=== PATIENT | female | born 1940 | race Caucasian/White ===

== ENCOUNTER 2017-01-21 11:21 | Emergency (ER) | payer MEDICARE, OTHER ==
--- NOTE | 2017-01-21 14:36 | ED Physician Documentation ---
PD HPI LOWER EXT INJURY - Stated complaint Stated Complaint: LEG PX - Chief complaint Chief Complaint: Ext Problem - History obtained from History obtained from: Patient - History of Present Illness PD HPI LOW EXT INJURY LOCATION: Left, Calf Type of injury: No: Fall, Twist, Blunt / blow Timing - onset: How many weeks ago (1 week ago noted an abrupt pain in mid calf. Has had some pain with walking, and had increasing cramping pain today.) Timing - details: Gradual onset, Still present Worsened by: Moving, Palpating Associated symptoms: No: Weakness, Numbness, Swelling, Discolored Similar symptoms before: Has not had sx before Recently seen: Not recently seen Review of Systems Constitutional: denies: Fever, Chills Skin: denies: Rash, Lesions Musculoskeletal: denies: Extremity swelling Neurologic: denies: Focal weakness, Numbness PD PAST MEDICAL HISTORY - Past Medical History Cardiovascular: Hypertension Respiratory: Asthma Neuro: None Endocrine/Autoimmune: Type 2 diabetes Psych: None Musculoskeletal: Scoliosis, Other - 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 History 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 History: 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: Dilation and currettage, Hysterectomy - Present Medications Home Medications: Ambulatory Orders Medication Instructions Recorded Confirmed Doxazosin [Cardura] 4 mg PO DAILY 07/03/13 01/21/17 Lisinopril [Zestril] 20 mg PO DAILY 07/03/13 01/21/17 Metformin HCl [Glumetza] 1,000 mg PO DAILY 07/03/13 01/21/17 Dulaglutide [Trulicity] 0.75 mg SQ 01/21/17 - Social History Does the pt smoke?: No Smoking Status: Never smoker Does the pt drink ETOH?: No Does the pt have substance abuse?: No - Immunizations Immunizations are current?: Yes - POLST Patient has POLST: No PD ED PE NORMAL - Vitals Vital signs reviewed: Yes - General General: Alert and oriented X 3, No acute distress, Well developed/nourished - Neck Neck: Supple, no meningeal sign, No adenopathy, No JVD - Cardiac Cardiac: RRR, No murmur - Respiratory Respiratory: Clear bilaterally - Abdomen Abdomen: Soft, Non tender - Derm Derm: Normal color, Warm and dry - Extremities Extremities: No edema, Other. No: No tenderness to palpate, Normal ROM s pain - Neuro Neuro: Alert and oriented X 3, No motor deficit, No sensory deficit, Normal speech Results - Vitals Vitals: Oxygen O2 Source [With Activity] Room air O2 Source Room air - Rads (name of study) duplex U/S of left calf veins Radiology: Prelim report reviewed (no DVT) PD MEDICAL DECISION MAKING - ED course Complexity details: considered differential (concern for muscle strain or such vs. DVT. They are going on plane flight/trip this coming Saturday, so is concerned about blood clot. ), d/w patient Departure - Departure Disposition: Home, Self Care Clinical Impression: Pain of left calf Clinical Impression: (Ruled Out): Deep vein thrombosis Condition: Stable Record reviewed to determine appropriate education?: Yes Instructions: ED Muscle Pain Leg Cramps Follow-Up: Chadd Wilson MD [Primary Care Provider] - Comments: The ultrasound is negative for blood clots. Presume then muscular cause of the pain and use some warm towels to the area periodically and use ibuprofen or naproxen twice daily for the next for 5 days. Add Tylenol if needed for pain. Recheck if other symptoms develop with it or if worsening. For the calf only, the ultrasound is pretty accurate but not 100% and so if you do have worsening of the pain or swelling in the leg than the ultrasound can be repeated in about a week as there is perhaps 1-2% chance of missing a blood clot early in the calf by ultrasound. Discharge Date/Time: 01/21/17 16:09
[2017-01-21 16:09] VITALS: BP 178/81
--- NOTE | 2017-01-21 16:23 | Ultrasound Report ---
LEFT LEG VENOUS DUPLEX: 01/21/2017 CLINICAL INDICATION: Calf pain. TECHNIQUE: Real-time sonographic vascular imaging was performed by the commercial hvac technician through the left l ower extremity utilizing both color flow and Doppler spectral analysis. Multiple credit and collections representative stati c images were saved for review. FINDINGS: A left lower extremity venous sonogram is performed revealing the common femoral, superfici al femoral, profunda femoris, and popliteal veins to be adequately visualized without intraluminal de fects. There is normal venous compression, augmentation, phasicity, and spontaneity of venous flow. I n the calf, the visualized more cephalad portions of posterior tibial and peroneal veins are grossly compressible, without filling defects. IMPRESSION: NO EVIDENCE OF DEEP VENOUS THROMBOSIS. JOB #: [id number] EXT JOB #:[id number]
== END 2017-01-21 16:09 | disposition home or self-care (01) ==
LOC: ED 11:21
DX: M79.662 Pain in left lower leg (principal); I10 Essential (primary) hypertension; J45.909 Unspecified asthma, uncomplicated; E11.9 Type 2 diabetes mellitus without complications; Z79.84 Long term (current) use of oral hypoglycemic drugs
CPT/HCPCS: 99283

== ENCOUNTER 2018-02-17 12:42 | Outpatient (CLI) | payer MEDICARE, OTHER | END 2018-02-17 12:43 | disposition home or self-care (01) | LOC: DI 12:42 | PROVIDERS: ATTEND Internal Medicine | DX: R06.09 Other forms of dyspnea (principal); I51.7 Cardiomegaly | CPT/HCPCS: 93306 ==

== ENCOUNTER 2018-02-24 15:33 | Emergency (ER) | payer MEDICARE, OTHER ==
--- NOTE | 2018-02-24 16:45 | ED Physician Documentation ---
PD HPI LOWER EXT INJURY - Stated complaint Stated Complaint: BACK L KNEE PX - Chief complaint Chief Complaint: Ext Problem - History obtained from History obtained from: Patient - History of Present Illness PD HPI LOW EXT INJURY LOCATION: Left, Knee, Calf (upper part behind knee mainly) Type of injury: No: Fall, Twist (no notable injury. had onset of pain that has been worsening.) Where injury occurred: Home Timing - onset: Yesterday Timing - details: Gradual onset, Waxing and waning Improved by: Rest Worsened by: Palpating, Other (walking) Associated symptoms: No: Weakness, Numbness, Swelling Contributing factors: No: Anticoagulated Similar symptoms before: Has not had sx before Recently seen: Not recently seen Review of Systems Constitutional: denies: Fever, Chills Nose: denies: Rhinorrhea / runny nose, Congestion Throat: denies: Sore throat Cardiac: denies: Chest pain / pressure Respiratory: denies: Dyspnea, Cough GI: denies: Nausea, Vomiting, Diarrhea Skin: denies: Rash, Lesions PD PAST MEDICAL HISTORY - Past Medical History Cardiovascular: Hypertension Respiratory: Asthma Endocrine/Autoimmune: Type 2 diabetes Psych: None Musculoskeletal: Scoliosis, Other - 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 History 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 History: No /PLATE FORMER: Dilation and currettage, Hysterectomy - Present Medications Home Medications: Ambulatory Orders Medication Instructions Recorded Confirmed Doxazosin [Cardura] 4 mg PO DAILY 07/03/13 01/21/17 Lisinopril [Zestril] 20 mg PO DAILY 07/03/13 01/21/17 Metformin HCl [Glumetza] 1,000 mg PO DAILY 07/03/13 01/21/17 Dulaglutide [Trulicity] 0.75 mg SQ 01/21/17 Hydrocodone/Acetaminophen [[place] 1 each PO Q6H PRN #15 tablet 02/24/18 5-325 Tablet] Naproxen 375 mg PO BID #20 tablet 02/24/18 - Allergies Allergies/Adverse Reactions: Allergies Allergy/AdvReac Type Severity Reaction Status Date / Time cephalexin [From Keflex] Allergy Unknown Verified 02/24/18 16:21 - Social History Does the pt smoke?: No Smoking Status: Never smoker Does the pt drink ETOH?: No Does the pt have substance abuse?: No - Immunizations Immunizations are current?: Yes - POLST Patient has POLST: No PD ED PE NORMAL - Vitals Vital signs reviewed: Yes - General General: Alert and oriented X 3, Well developed/nourished, Other (uncomfortable with standing/walking. ) - Cardiac Cardiac: RRR, No murmur - Respiratory Respiratory: Clear bilaterally - Abdomen Abdomen: Soft, Non tender - Back Back: No spinal TTP - Derm Derm: Normal color, Warm and dry, No rash - Extremities Extremities: No edema, Other (there is tenderness in lateral popliteal area, without obvious mass. No rash nor sores. Simple ligament testing of knee without laxity nor ligament pains. ) - Neuro Neuro: No motor deficit, No sensory deficit Results - Vitals Vitals: Oxygen O2 Source [With Activity] Room air O2 Source Room air - Rads (name of study) knee xray Radiology: Prelim report reviewed (some arthritic changes; no acute process) duplex leg Radiology: Prelim report reviewed (no DVT. Bakers cyst seen. ) PD MEDICAL DECISION MAKING - ED course Complexity details: reviewed results (knee xray and duplex - has Bakers cyst so may be the pain. Otherwise would be suspicious for meniscal pain. ), considered differential (concern for DVT though not calf pain per se. Can get U/S. ), d/w patient, d/w family (spouse) Departure - Departure Disposition: 01 Home, Self Care Clinical Impression: Knee pain, acute Qualifiers: Laterality: left Qualified Code(s): M25.562 - Pain in left knee Lemus's cyst of knee Qualifiers: Laterality: left Qualified Code(s): M71.22 - Synovial cyst of popliteal space [Lemus], left knee Condition: Stable Record reviewed to determine appropriate education?: Yes Instructions: ED Cyst Lemus, ED Meniscal Injury Knee Poss Follow-Up: Cesario Browne MD [Primary Care Provider] - [facility] [Provider Group] Prescriptions: Hydrocodone/Acetaminophen [[place] 5-325 Tablet] 1 each PO Q6H PRN #15 tablet PRN Reason: Pain Naproxen 375 mg PO BID #20 tablet Comments: There are no signs of blood clots on ultrasound. Your x-ray appeared normal without any obvious arthritis or fractures. The ultrasound did show a Lemus's cyst in the back of the knee and this may be causing acute pain if it was newly expanded or having inflammation. Alternatively it may be an incidental finding and the pain is actually from the cartilage in the knee having some inflammation or bruising. Both of these would be initially treated with less weight on the knee, therefore using crutches for partial to no weightbearing. Also anti-inflammatories such as naproxen twice daily for the next 7-10 days. Add Tylenol or hydrocodone if needed for pain. Recheck if not improved over the next several days. If the cyst is the cause of the pain and does not improve, he can get drained initially or repaired by orthopedics. Alternatively they could assess if they think the meniscus is causing the pain as well. Discharge Date/Time: 02/24/18 20:28
[2018-02-24] MEDS ORDERED: HYDROcod/ACETAM 5/325 MG TABLET PO STA (17:20)
[2018-02-24] MEDS ORDERED: NAPROXEN 250 MG TABLET PO STA (17:20)
--- NOTE | 2018-02-24 18:11 | XRAY Report ---
Reason: left knee pain Procedure Date: 02/24/2018 Accession Number: [id number] / [id number] Procedure: XR - Knee 3 View LT CPT Code: FULL RESULT: EXAM: LEFT KNEE RADIOGRAPHY EXAM DATE: 02/24/2018 05:33 PM. CLINICAL HISTORY: Left knee pain for one day. No precipitating injury. COMPARISON: None. TECHNIQUE: 3 views. FINDINGS: Bones: Normal. No fractures or bone lesions. Joints: Normal. No effusion. No subluxations. Soft Tissues: Normal. No soft tissue swelling. IMPRESSION: Normal knee radiography. RADIA
--- NOTE | 2018-02-24 19:51 | Ultrasound Report ---
Reason: left popliteal pain for 2 days Procedure Date: 02/24/2018 Accession Number: [id number] / [id number] Procedure: US - Duplex Ext Veins Left CPT Code: FULL RESULT: EXAM: LEFT LOWER EXTREMITY VENOUS ULTRASOUND EXAM DATE: 02/24/2018 08:11 PM. CLINICAL HISTORY: Left popliteal pain for 2 days. COMPARISON: DUPLEX EXT VEINS LEFT 01/21/2017 3:15 PM. TECHNIQUE: Real-time sonographic vascular imaging was performed by the station jailer through the lower extremity utilizing both color-flow and Doppler spectral analysis. Multiple hostess party sales representative static images were saved for review. FINDINGS: Common Femoral Vein (CFV): Normal. CFV-GSV Junction: Normal. Profunda Femoral Vein (PFV): Normal. Femoral Vein (FV) Prox: Normal. Femoral Vein (FV) Mid: Normal. Femoral Vein (FV) Dist: Normal. Popliteal Vein: Normal. Posterior Tibial Veins: Limited visualization. Peroneal Veins: Limited visualization. Other: Left popliteal fluid collection 5.9 x 0.7 x 2.4 cm. IMPRESSION: 1. No evidence for deep venous thrombosis. 2. Left Lemus's cyst. RADIA
[2018-02-24] MEDS ORDERED: HYDROcod/ACET 5/325 Prepack 4 PO STA (20:12)
[2018-02-24 20:20] VITALS: BP 182/75
== END 2018-02-24 20:28 | disposition home or self-care (01) ==
LOC: ED 15:33
DX: M71.22 Synovial cyst of popliteal space [Baker], left knee (principal); I10 Essential (primary) hypertension; E11.9 Type 2 diabetes mellitus without complications; Z79.84 Long term (current) use of oral hypoglycemic drugs
CPT/HCPCS: 73562; 93971; 99283; A9270

== ENCOUNTER 2018-03-12 08:49 | Outpatient (CLI) | payer MEDICARE, OTHER ==
[2018-03-12] MEDS ORDERED: REGADENOSON 0.4 MG/5 ML SYRINGE IVP ONE ×2 (10:22→12:14)
--- NOTE | 2018-03-12 12:32 | CARDIAC PROCEDURE NOTE ---
DATE OF SERVICE: 03/12/2018 Physician: Lina Frank MD, [facility] INDICATION: Dyspnea. CORONARY RISK FACTORS: Postmenopausal, hypertension, diabetes, family history of heart disease. SUMMARY: After signing informed consent, the patient underwent a Lexiscan pharmaceutical stress test with nuclear myocardial perfusion imaging. Heart rate 76, peak heart rate 92. Resting blood pressure 160/76, peak blood pressure 130/60, recovery blood pressure 148/60. Lexiscan was infused per protocol. The patient developed abdominal "pressure" which resolved spontaneously, and after that she had bilateral upper arm pressure which also resolved spontaneously. She had no chest pain or dyspnea. RESTING EKG: Normal sinus rhythm, right axis deviation, early RS transition, T- wave inversions in leads III and aVF. EKG AT [facility]: No new ST or T-wave changes. SUMMARY: 1. Abnormal resting EKG suggesting right heart disease or cor pulmonale. 2. No ischemic changes by EKG criteria, with pharmaceutical stress testing 3. Nuclear images reported separately. cc: Cesario Browne MD TD: 03/12/2018 12:20 [facility]
--- NOTE | 2018-03-12 14:23 | Nuclear Medicine Report ---
Reason: EXERTIONAL DYSPNEA Procedure Date: 03/12/2018 Accession Number: [id number] / [id number] Procedure: NM - Myocardial Perfusion STR/RST CPT Code: FULL RESULT: EXAM: SINGLE-ISOTOPE PHARMACOLOGICAL STRESS TEST WITH REGADENOSON. SINGLE-ISOTOPE AND ONE-DAY REST/STRESS MYOCARDIAL PERFUSION SCANS WITH TOMOGRAPHIC IMAGING, QUANTITATIVE ANALYSIS, WALL MOTION ANALYSIS AND CALCULATION OF EJECTION FRACTION. EXAM DATE: 03/12/2018 01:04 PM. CLINICAL HISTORY: EXERTIONAL DYSPNEA. COMPARISON: None. TECHNIQUE: After the intravenous administration of 10.7 mCi of Tc-99m sestamibi, a rest myocardial perfusion scan was done with tomography. Motion correction was applied when appropriate. After an appropriate delay, pharmacological stress was performed with the infusion of 0.4 mg regadenoson per protocol. According to protocol, 44.3 mCi of Tc-99m sestamibi was injected for stress myocardial perfusion scan. Motion correction was applied when appropriate. Gated tomographic images were obtained for wall motion analysis and computation of left ventricular ejection fraction. FINDINGS: There is a moderate severity partially fixed and partially reversible defect in the mid to distal anteroseptal wall. There is a smaller and less severe reversible defect in the mid inferolateral wall. Computer analysis: Summed stress score 7 Summed rest score 1 Summed difference score 6 Wall motion analysis demonstrates no focal wall motion abnormality. The left ventricular end-diastolic volume is 52 cc. The left ventricular end-systolic volume is 7 cc. The left ventricular ejection fraction is calculated to be 87%. IMPRESSION: 1. Moderate severity partially fixed and partially reversible mid to distal anterolateral septal wall defect. Small, mild severity reversible defect in the mid inferolateral wall. 2. Left ventricular ejection fraction of >65%. 3. Normal segmental and global wall motion. 4. Normal left ventricular cavity size, no change with stress. 5. Based on computer analysis, mildly abnormal study with moderate ischemia. RADIA
== END 2018-03-12 08:50 | disposition home or self-care (01) ==
LOC: DI 08:49
PROVIDERS: ATTEND Internal Medicine
DX: I25.9 Chronic ischemic heart disease, unspecified (principal); I10 Essential (primary) hypertension; R94.31 Abnormal electrocardiogram [ECG] [EKG]; E11.9 Type 2 diabetes mellitus without complications; Z82.49 Family history of ischemic heart disease and other diseases of the circulatory system
CPT/HCPCS: 78452; 93017; A9500; J2785

== ENCOUNTER 2018-03-20 22:39 | Outpatient (CLI) | payer MEDICARE, OTHER ==
--- NOTE | 2018-03-21 00:23 | Ultrasound Report ---
Reason: LEG PAIN, LEFT AND SWELLING Procedure Date: 03/20/2018 Accession Number: [id number] / [id number] Procedure: US - Duplex Ext Veins Left CPT Code: FULL RESULT: EXAM: LEFT LOWER EXTREMITY VENOUS ULTRASOUND EXAM DATE: 03/20/2018 11:48 PM. CLINICAL HISTORY: LEG PAIN, LEFT AND SWELLING. COMPARISON: DUPLEX EXT VEINS LEFT 02/24/2018 8:11 PM. TECHNIQUE: Real-time sonographic vascular imaging was performed by the nuclear auxiliary operator through the lower extremity utilizing both color-flow and Doppler spectral analysis. Multiple senior customer service representative static images were saved for review. FINDINGS: Common Femoral Vein (CFV): Normal. CFV-GSV Junction: Normal. Profunda Femoral Vein (PFV): Normal. Femoral Vein (FV) Prox: Normal. Femoral Vein (FV) Mid: Normal. Femoral Vein (FV) Dist: Normal. Popliteal Vein: Normal. Posterior Tibial Veins: Normal. Peroneal Veins: Normal. Contralateral Side CFV: Normal. Other: Popliteal fossa cyst with some internal echoes, measuring 5.7 x 0.9 x 3.0 cm. IMPRESSION: 1. No evidence for deep venous thrombosis. 2. Mildly complex popliteal fossa cyst. RADIA
== END 2018-03-20 22:40 | disposition home or self-care (01) ==
LOC: DI 22:39
PROVIDERS: ATTEND Orthopaedic Surgery Sports Medicine
DX: M79.605 Pain in left leg (principal); M71.22 Synovial cyst of popliteal space [Baker], left knee

== ENCOUNTER 2018-10-09 16:04 | Outpatient (CLI) | payer MEDICARE, OTHER ==
--- NOTE | 2018-10-11 09:48 | Ultrasound Report ---
Reason: PAINFUL,SWOLLEN Procedure Date: 10/09/2018 Accession Number: [id number] / [id number] Procedure: US - Head or Neck Soft Tissue CPT Code: FULL RESULT: EXAM: THYROID ULTRASOUND EXAM DATE: 10/09/2018 04:30 PM. CLINICAL HISTORY: Pain and swelling in right submandibular region. COMPARISON: None. TECHNIQUE: Real time sonographic imaging of the thyroid was performed by the car whacker. Multiple corporate representative static images were saved for review. FINDINGS: THYROID GLAND: Right Lobe: 3.6 x 2.0 x 1.4 cm, volume 4.7 cc. Normal background echotexture. Right Lobe Nodules: 1. Small cystic focus lateral mid gland 4 x 5 x 2 mm. 2. Cystic focus lateral lower pole 5 x 5 x 6 mm. 3. Complex solid and cystic focus lateral lower pole 4 x 4 x 6 mm. 4. Complex solid and cystic focus lower pole 4 x 4 x 4 mm. Left Lobe: 3.4 x 1.8 x 1.5 cm, volume 4.4 cc. Normal background echotexture. Left Lobe Nodules: 1. Solid and cystic focus upper pole 4 x 6 x 8 mm. 2. Predominantly cystic mixed lesion mid gland 5 x 6 x 7 mm. 3. Predominantly cystic mixed lesion mid to lower pole 7 x 7 x 7 mm. Isthmus: 0.1 cm AP. Isthmic Nodules: None. LYMPH NODES: No adenopathy demonstrated in the central or lateral compartment. OTHER: The region of patient's concern is in the right submandibular gland region. No abnormalities identified. IMPRESSION: 1. Multiple solid and/or cystic small thyroid lesions bilaterally measuring up to 6 mm on the right and 7 mm on the left. None meet WILLIAM criteria for recommended biopsy. Sonographic follow-up could be considered however and 12-24 months. 2. No mass or adenopathy in region of patient's concern near the submandibular gland. Management recommendations are based on 2015 [place] [employer] Management Guidelines for Adult Patients with Thyroid Nodules and Differentiated Thyroid Cancer. RADIA
== END 2018-10-09 16:05 | disposition home or self-care (01) ==
LOC: DI 16:04
PROVIDERS: ATTEND Physician Assistant
DX: E04.2 Nontoxic multinodular goiter (principal)
CPT/HCPCS: 76536

== ENCOUNTER 2018-11-04 14:20 | Emergency (ER) | payer MEDICARE, OTHER ==
[2018-11-04] MEDS ORDERED: DOXEPIN 10 MG CAPSULE PO STA (15:11)
[2018-11-04] MEDS ORDERED: predniSONE 20 MG TABLET PO STA (15:14)
[2018-11-04 15:37] VITALS: BP 142/68
--- NOTE | 2018-11-04 15:41 | ED Physician Documentation ---
History of Present Illness - Stated complaint Stated Complaint: RASH/WEAKNESS - Chief complaint Chief Complaint: General - History obtained from History obtained from: Patient, Family - History of Present Illness Timing: How many days ago (5) Pain level max: 0 Pain level now: 0 - Additonal information Additional information: 78-year-old female presents to the emergency department stating that she had 2 days of a flulike illness followed by a rash that started on the arms and is now worked its way under her trunk, back and legs. It is not on the palms or soles. There is also not on her face. It is very itchy. She has been taking Zantac without relief. She states that her doctor told her not to use hydrocortisone or Benadryl. Review of Systems Constitutional: denies: Fever, Chills Respiratory: denies: Cough GI: denies: Nausea, Vomiting, Diarrhea Skin: reports: Rash Musculoskeletal: denies: Neck pain, Back pain Neurologic: denies: Headache PD PAST MEDICAL HISTORY - Past Medical History Past Medical History: Yes Cardiovascular: Hypertension Respiratory: Asthma Neuro: None Endocrine/Autoimmune: Type 2 diabetes GI: None DATA MANAGEMENT: None : None HEENT: None Psych: None Musculoskeletal: Scoliosis, Other Derm: None - 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 History 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 History: No /DATA MANAGEMENT: Dilation and currettage, Hysterectomy - Present Medications Home Medications: Ambulatory Orders Medication Instructions Recorded Confirmed Doxazosin [Cardura] 4 mg PO DAILY 07/03/13 01/21/17 Lisinopril [Zestril] 20 mg PO DAILY 07/03/13 01/21/17 Metformin HCl [Glumetza] 1,000 mg PO DAILY 07/03/13 01/21/17 Dulaglutide [Trulicity] 0.75 mg SQ 01/21/17 Hydrocodone/Acetaminophen [[place] 1 each PO Q6H PRN #15 tablet 02/24/18 5-325 Tablet] Naproxen 375 mg PO BID #20 tablet 02/24/18 Doxepin HCl 10 mg PO TID PRN #20 capsule 11/04/18 predniSONE [Prednisone] 20 mg PO DAILY #7 tablet 11/04/18 - Allergies Allergies/Adverse Reactions: Allergies Allergy/AdvReac Type Severity Reaction Status Date / Time cephalexin [From Keflex] Allergy Unknown Verified 02/24/18 16:21 - Social History Does the pt smoke?: No Smoking Status: Never smoker Does the pt drink ETOH?: No Does the pt have substance abuse?: No - Immunizations Immunizations are current?: Yes - POLST Patient has POLST: No PD ED PE NORMAL - Vitals Vital signs reviewed: Yes - General General: Alert and oriented X 3, No acute distress - HEENT HEENT: PERRL, Moist mucous membranes, Pharynx benign, Dentition benign, Other (normal intraoral exam) - Neck Neck: Supple, no meningeal sign - Cardiac Cardiac: RRR, Strong equal pulses - Respiratory Respiratory: No respiratory distress, Clear bilaterally - Abdomen Abdomen: Soft, Non tender, Non distended - Derm Derm: Warm and dry, Other (Diffuse maculopapular exanthem. Light pink. Blanches easily.) - Neuro Neuro: Alert and oriented X 3 Results - Vitals Vitals: Vital Signs - 24 hr 11/04/18 11/04/18 14:29 15:36 Temperature 36.7 C 36.7 C Heart Rate 76 80 Respiratory 14 18 Rate Blood Pressure 134/66 H 142/68 H O2 Saturation 100 96 Oxygen O2 Source [With Activity] Room air O2 Source Room air PD MEDICAL DECISION MAKING - ED course Complexity details: considered differential, d/w patient ED course: 78-year-old female with a nonspecific dermatitis. No new lotions, detergents, travel, medications. Will utilize doxepin for itching. Will place on a low- dose steroid as well to see if this resolves her symptoms. Possible viral exanthem? Patient counseled regarding signs and symptoms for which I believe and urgent re-evaluation would be necessary. Patient with good understanding of and agreement to plan and is comfortable going home at this time This document was made in part using voice recognition software. While efforts are made to proofread this document, sound alike and grammatical errors may occur. Departure - Departure Disposition: 01 Home, Self Care Clinical Impression: Viral exanthem Condition: Good Instructions: ED Dermatitis Non Specific Rash Follow-Up: Cesario Browne MD [Primary Care Provider] - Within 1 week Prescriptions: Doxepin HCl 10 mg PO TID PRN #20 capsule PRN Reason: itching predniSONE [Prednisone] 20 mg PO DAILY #7 tablet Comments: Use the medications as prescribed. Return if you worsen. Follow-up with your doctor for further care. Your laboratory testing from your doctor is not available as of yet.
== END 2018-11-04 15:50 | disposition home or self-care (01) ==
LOC: ED 14:20
DX: B09 Unspecified viral infection characterized by skin and mucous membrane lesions (principal); I10 Essential (primary) hypertension; E11.9 Type 2 diabetes mellitus without complications; Z79.84 Long term (current) use of oral hypoglycemic drugs
CPT/HCPCS: 99282; 99284; A9270; J7512

== ENCOUNTER 2019-08-03 16:56 | Emergency (ER) | payer MEDICARE, OTHER ==
--- NOTE | 2019-08-03 17:15 | ED Physician Documentation ---
PD HPI FEMALE - Stated complaint Stated Complaint: FEMALE - Chief complaint Chief Complaint: UTI - History obtained from History obtained from: Patient (She is had a few days of burning dysuria and frequency without flank pain or fevers. 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: Dilation and currettage, Hysterectomy - Present Medications Home Medications: Ambulatory Orders Medication Instructions Recorded Confirmed Doxazosin [Cardura] 4 mg PO DAILY 07/03/13 01/21/17 Metformin HCl [Glumetza] 1,000 mg PO DAILY 07/03/13 01/21/17 lisinopriL [Zestril] 20 mg PO DAILY 07/03/13 01/21/17 Dulaglutide [Trulicity] 0.75 mg SQ 01/21/17 Hydrocodone/Acetaminophen [[place] 1 each PO Q6H PRN #15 tablet 02/24/18 5-325 Tablet] Naproxen 375 mg PO BID #20 tablet 02/24/18 Doxepin HCl 10 mg PO TID PRN #20 capsule 11/04/18 predniSONE [Prednisone] 20 mg PO DAILY #7 tablet 11/04/18 Ciprofloxacin [Cipro] 250 mg PO Q12H #6 tablet 08/03/19 Phenazopyridine HCl [Pyridium] 200 mg PO TID PRN #6 tablet 08/03/19 - Allergies Allergies/Adverse Reactions: Allergies Allergy/AdvReac Type Severity Reaction Status Date / Time cephalexin [From Keflex] Allergy Unknown Verified 08/03/19 17:02 - Social History Does the pt smoke?: No Smoking Status: Never smoker Does the pt drink ETOH?: No Does the pt have substance abuse?: No - Immunizations Immunizations are current?: Yes - POLST Patient has POLST: No PD ED PE NORMAL - Vitals Vital signs reviewed: Yes - General General: Alert and oriented X 3, No acute distress - Abdomen Abdomen: Soft, Non tender - Back Back: No CVA TTP - Neuro Neuro: Alert and oriented X 3, Normal speech Results - Vitals Vitals: Vital Signs - 24 hr 08/03/19 17:02 Temperature 36.5 C Heart Rate 90 Respiratory 16 Rate Blood Pressure 122/66 O2 Saturation 97 Oxygen O2 Source [With Activity] Room air O2 Source Room air - Labs Labs: Laboratory Tests 08/03/19 17:10 Urine Color YELLOW Urine Clarity HAZY Urine pH 5.5 Ur Specific [place] >=1.030 H Urine Protein 100 H Urine Glucose (UA) NEGATIVE Urine Ketones TRACE Urine Occult Blood LARGE H Urine Nitrite POSITIVE H Urine Bilirubin NEGATIVE Urine Urobilinogen 0.2 (NORMAL) Ur Leukocyte Esterase MODERATE H Urine RBC TNTC H Urine WBC >25 H Ur Squamous Epith Cells RARE Squamous Urine Crystals 6-10 Calcium Oxalate Urine Bacteria Many H Ur Microscopic Review INDICATED Urine Culture Comments INDICATED Departure - Departure Disposition: 01 Home, Self Care Clinical Impression: Cystitis Condition: Good Record reviewed to determine appropriate education?: Yes Instructions: ED UTI Cystitis Female Prescriptions: Ciprofloxacin [Cipro] 250 mg PO Q12H #6 tablet Phenazopyridine HCl [Pyridium] 200 mg PO TID PRN #6 tablet PRN Reason: dysuria Comments: We will culture your urine, the results should be done in 48-72 hours. If an antibiotic change is necessary we will call you. Return if worse in the meantime, especially if you develop increasing flank pain, fevers, or cannot keep down the medication.
[2019-08-03 17:25] LABS: BILIRUBIN,URINE NEGATIVE (NEGATIVE); GLUCOSE, URINE (UA) NEGATIVE (NEGATIVE); KETONES,URINE (UA) TRACE mg/dL (NEGATIVE); LEUKOCYTE ESTERASE, URINE MODERATE (NEGATIVE); NITRITE,URINE POSITIVE (NEGATIVE); OCCULT BLOOD,URINE LARGE (NEGATIVE); PH,URINE 5.5 PH (5.0-7.5); PROTEIN,URINE 100 mg/dL (NEGATIVE); UROBILINOGEN,URINE 0.2 (NORMAL) E.U./dL (NORMAL)
[2019-08-03 17:29] LABS: CLARITY,URINE HAZY (CLEAR)
[2019-08-03 17:33] LABS: BACTERIA,URINE Many /HPF (None Seen); CRYSTALS,URINE 6-10 Calcium Oxalate /LPF; RBC,URINE TNTC /HPF (0-5); SQUAMOUS EPITHELIAL CELL,UR RARE Squamous (<= Few)
[2019-08-03] MEDS ORDERED: PHENAZOPYRIDINE 100 MG TABLET PO STA (17:33)
[2019-08-03] MEDS ORDERED: CIPROFLOXACIN 250 MG TABLET PO STA (17:33)
[2019-08-03 17:49] VITALS: BP 134/58
== END 2019-08-03 17:51 | disposition home or self-care (01) ==
LOC: ED 16:56
DX: N30.90 Cystitis, unspecified without hematuria (principal); I10 Essential (primary) hypertension; E11.9 Type 2 diabetes mellitus without complications
CPT/HCPCS: 81001; 87077; 87086; 87181; 99283; A9270; 81003

== ENCOUNTER 2019-08-31 20:48 | Outpatient (CLI) | payer MEDICARE, OTHER | END 2019-08-31 20:49 | disposition home or self-care (01) | LOC: COV 20:48 | PROVIDERS: ATTEND Family Medicine | DX: R50.9 Fever, unspecified (principal); M79.10 Myalgia, unspecified site | CPT/HCPCS: 81599 ==

== ENCOUNTER 2019-09-26 15:39 | Emergency (ER) | payer MEDICARE, OTHER ==
[2019-09-26] MEDS ORDERED: predniSONE 20 MG TABLET PO STA (15:55)
--- NOTE | 2019-09-26 15:55 | ED Physician Documentation ---
History of Present Illness - Stated complaint Stated Complaint: MEDICINE REACTION - Chief complaint Chief Complaint: Allergic Rx - History obtained from History obtained from: Patient - History of Present Illness Timing: Other (This is a very pleasant 79-year-old woman who has prolapsed bladder, pending surgery but delayed due to coronavirus, because of it she is developing frequent UTIs. She developed typical symptoms of burning and dysuria about 3 days ago and was seen at a clinic and prescribed Bactrim, shortly thereafter developed painful burning lesions especially in the axillae. She also feels achy. She denies any oral lesions. 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 History: 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 and currettage, Hysterectomy - Present Medications Home Medications: Ambulatory Orders Medication Instructions Recorded Confirmed Doxazosin [Cardura] 4 mg PO DAILY 07/03/13 01/21/17 Metformin HCl [Glumetza] 1,000 mg PO DAILY 07/03/13 01/21/17 lisinopriL [Zestril] 20 mg PO DAILY 07/03/13 01/21/17 Dulaglutide [Trulicity] 0.75 mg SQ 01/21/17 Hydrocodone/Acetaminophen [[place] 1 each PO Q6H PRN #15 tablet 02/24/18 5-325 Tablet] Naproxen 375 mg PO BID #20 tablet 02/24/18 Doxepin HCl 10 mg PO TID PRN #20 capsule 11/04/18 predniSONE [Prednisone] 20 mg PO DAILY #7 tablet 11/04/18 Ciprofloxacin [Cipro] 250 mg PO Q12H #6 tablet 08/03/19 Phenazopyridine HCl [Pyridium] 200 mg PO TID PRN #6 tablet 08/03/19 predniSONE [Deltasone] 60 mg PO DAILY 5 Days #15 tablet 09/26/19 - Allergies Allergies/Adverse Reactions: Allergies Allergy/AdvReac Type Severity Reaction Status Date / Time cephalexin [From Keflex] Allergy Unknown Verified 09/26/19 15:47 - Social History Does the pt smoke?: No Smoking Status: Never smoker Does the pt drink ETOH?: No Does the pt have substance abuse?: No - Immunizations Immunizations are current?: Yes - POLST Patient has POLST: No PD ED PE NORMAL - Vitals Vital signs reviewed: Yes - General General: Alert and oriented X 3, No acute distress (Large macular erythematous areas in the axillae) - Extremities Extremities: Other (Large erythematous macular areas in the axillae, Mild desquamation) - Neuro Neuro: Alert and oriented X 3, Normal speech Results - Vitals Vitals: Vital Signs - 24 hr 09/26/19 15:43 Temperature 37.2 C Heart Rate 79 Respiratory 18 Rate Blood Pressure 184/71 H O2 Saturation 95 Oxygen O2 Source [With Activity] Room air O2 Source Room air - Labs Labs: Laboratory Tests 09/26/19 17:36 Urine Color ORANGE Urine Clarity CLEAR Urine pH 5.5 Ur Specific [place] 1.015 Urine Protein Urine Glucose (UA) Urine Ketones TRACE Urine Occult Blood NEGATIVE Urine Nitrite Urine Bilirubin NEGATIVE Urine Urobilinogen Ur Leukocyte Esterase Urine RBC None Seen Urine WBC 0-3 Ur Squamous Epith Cells FEW Squamous Urine Bacteria None Seen Ur Microscopic Review INDICATED Urine Culture Comments NOT INDICATED PD MEDICAL DECISION MAKING - ED course ED course: She has macular patches in her axillae probably from the sulfa. Her urine is now normal. No other evidence of SJS or TEN. Departure - Departure Disposition: 01 Home, Self Care Clinical Impression: Medication side effect Condition: Good Record reviewed to determine appropriate education?: Yes Instructions: ED Drug React Allergic Prescriptions: predniSONE [Deltasone] 60 mg PO DAILY 5 Days #15 tablet Comments: You were seen today due to a rash, I suspect it was from the sulfa drug. I would no longer take sulfa drugs in the future. Your urine though was now normal, so I think you can safely stop all antibiotics. We will put you on a few days of the steroids for the reaction. Return for new or worsening symptoms.
[2019-09-26 17:41] LABS: BILIRUBIN,URINE NEGATIVE (NEGATIVE); KETONES,URINE (UA) TRACE mg/dL (NEGATIVE); OCCULT BLOOD,URINE NEGATIVE (NEGATIVE); PH,URINE 5.5 PH (5.0-7.5)
[2019-09-26 17:51] LABS: CLARITY,URINE CLEAR (CLEAR)
[2019-09-26 17:54] LABS: BACTERIA,URINE None Seen /HPF (None Seen); RBC,URINE None Seen /HPF (0-5); SQUAMOUS EPITHELIAL CELL,UR FEW Squamous (<= Few)
[2019-09-26 18:19] VITALS: BP 197/102
== END 2019-09-26 18:19 | disposition home or self-care (01) ==
LOC: ED 15:39
DX: L27.1 Localized skin eruption due to drugs and medicaments taken internally (principal); T36.8X5A Adverse effect of other systemic antibiotics, initial encounter; N81.10 Cystocele, unspecified; N39.0 Urinary tract infection, site not specified; I10 Essential (primary) hypertension; E11.9 Type 2 diabetes mellitus without complications; Z79.84 Long term (current) use of oral hypoglycemic drugs
CPT/HCPCS: 81001; 99283; J7512; 81003; 87086

== ENCOUNTER 2019-10-03 07:09 | Outpatient (CLI) | payer MEDICARE, OTHER | END 2019-10-03 07:10 | disposition critical access hospital (66) | LOC: EMS 07:09 | PROVIDERS: ATTEND Surgery | DX: R07.9 Chest pain, unspecified (principal); R61 Generalized hyperhidrosis; R06.00 Dyspnea, unspecified | CPT/HCPCS: A0425; A0427 ==

== ENCOUNTER 2019-10-03 07:19 | Emergency (ER) | payer MEDICARE, OTHER ==
--- NOTE | 2019-10-03 07:26 | ED Physician Documentation ---
PD HPI CHEST PAIN - Stated complaint Stated Complaint: CP - History obtained from History obtained from: Patient - History of Present Illness Timing - onset: Today - Additional information Additional information: 79-year-old woman with history of diabetes and hypertension. Note made that she had a mildly abnormal stress test about 2 years ago, there was no specific follow-up but she does see a fuel technician. This morning at 4 AM she was walking to the bathroom and developed severe substernal chest pain radiating to the left and between the shoulder blades. She is short of breath and sweaty with it. Prior to arrival she received 4 baby aspirin and 1 nitroglycerin which dropped her pressure. She is noted to be in mildly rapid A. fib which is a new phenomenon for her. 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 and currettage, Hysterectomy - Present Medications Home Medications: Ambulatory Orders Medication Instructions Recorded Confirmed Doxazosin [Cardura] 4 mg PO DAILY 07/03/13 10/03/19 Metformin HCl [Glumetza] 1,000 mg PO BID 07/03/13 10/03/19 lisinopriL [Zestril] 20 mg PO DAILY 07/03/13 10/03/19 Dulaglutide [Trulicity] 0.75 mg SQ ONCE 01/21/17 10/03/19 Hydrocodone/Acetaminophen [[place] 1 each PO Q6H PRN #15 tablet 02/24/18 10/03/19 5-325 Tablet] Naproxen 375 mg PO BID #20 tablet 02/24/18 10/03/19 Doxepin HCl 10 mg PO TID PRN #20 capsule 11/04/18 10/03/19 predniSONE [Prednisone] 20 mg PO DAILY #7 tablet 11/04/18 predniSONE [Deltasone] 60 mg PO DAILY 5 Days #15 tablet 09/26/19 - Allergies Allergies/Adverse Reactions: Allergies Allergy/AdvReac Type Severity Reaction Status Date / Time acetaminophen [From Percocet] Allergy Unknown Verified 10/03/19 07:39 cephalexin [From Keflex] Allergy Unknown Verified 10/03/19 07:48 nitrofurantoin Allergy Unknown Verified 10/03/19 07:39 oxycodone [From Percocet] Allergy Unknown Verified 10/03/19 07:39 sulfamethoxazole Allergy Unknown Verified 10/03/19 07:39 [From Bactrim] trimethoprim [From Bactrim] Allergy Unknown Verified 10/03/19 07:39 - Social History Does the pt smoke?: No Smoking Status: Never smoker Does the pt drink ETOH?: No Does the pt have substance abuse?: No - Immunizations Immunizations are current?: Yes - POLST Patient has POLST: No PD ED PE NORMAL - Vitals Vital signs reviewed: Yes - General General: Other (She appears uncomfortable and is diaphoretic) - HEENT HEENT: PERRL, EOMI - Neck Neck: Supple, no meningeal sign, No bony TTP - Cardiac Cardiac: No murmur, Other (Irregularly irregular) - Respiratory Respiratory: No respiratory distress, Clear bilaterally - Abdomen Abdomen: Non tender - Derm Derm: Other (Sweaty; Improving rash from recent antibiotics in the right axilla) - Extremities Extremities: No edema, No calf tenderness / cord - Neuro Neuro: Alert and oriented X 3, Normal speech Results - Vitals Vitals: Vital Signs - 24 hr 10/03/19 10/03/19 10/03/19 07:20 07:36 08:05 Temperature 36.9 C Heart Rate 18 L 131 H 142 H Respiratory 17 26 H 21 Rate Blood Pressure 91/64 108/73 101/57 L O2 Saturation 97 97 96 Oxygen O2 Source [] Room air O2 Source Room air - EKG (time done) 0725 Rate: Rate (enter#) (135), Other (Twelve-lead EKG done at 07 25 demonstrates rapid atrial fibrillation with a rate of about 130, she has LVH, she has ST elevation in aVR, and widespread ST depression especially in the lateral leads. This is concerning for left main occlusion) - Labs Labs: Laboratory Tests 10/03/19 10/03/19 10/03/19 07:30 07:30 07:30 WBC 9.7 RBC 3.72 L Hgb 11.7 L Hct 35.5 L MCV 95.4 MCH 31.5 H MCHC 33.0 RDW 14.6 Plt Count 320 MPV 10.3 Neut # (Auto) 6.4 Lymph # (Auto) 2.6 [place] # (Auto) 0.5 Eos # (Auto) 0.2 Baso # (Auto) 0.0 Absolute Nucleated RBC 0.00 Nucleated RBC % 0.0 PT 12.5 INR 1.1 Sodium 136 Potassium 3.6 Chloride 99 L Carbon Dioxide 23 Anion Gap 14.0 H BUN 16 Creatinine 0.6 Estimated GFR (MDRD) 97 Glucose 213 H Calcium 9.0 Total Bilirubin 1.7 H AST 14 ALT 38 Alkaline Phosphatase 37 L Troponin I High Sens Total Protein 5.7 L Albumin 4.0 Globulin 1.7 L Albumin/Globulin Ratio 2.4 H Lipase 62 H 10/03/19 07:30 WBC RBC Hgb Hct MCV MCH MCHC RDW Plt Count MPV Neut # (Auto) Lymph # (Auto) [place] # (Auto) Eos # (Auto) Baso # (Auto) Absolute Nucleated RBC Nucleated RBC % PT INR Sodium Potassium Chloride Carbon Dioxide Anion Gap BUN Creatinine Estimated GFR (MDRD) Glucose Calcium Total Bilirubin AST ALT Alkaline Phosphatase Troponin I High Sens 18.1 H* Total Protein Albumin Globulin Albumin/Globulin Ratio Lipase PD MEDICAL DECISION MAKING - ED course ED course: 79-year-old woman with multiple risk factors "looks" like she is having an NM. EKG is concerning, shows new rapid atrial fibrillation with ST elevation in aVR and ST depression laterally. This is concerning for left main coronary occlusion. Will treat as STEMI. Received nitroglycerin prior to arrival with a drop in the pressure, will hold further nitrates. Pressure 91/61 here so a little limited on rate interventions for her A. fib. Received aspirin prior to arrival. Heparin drip begun. Accepted by Dr. Kash Aguirre to [facility] ED and cobras were completed. Initial plan was to send by [facility], there was a delay to transport because my understanding is that [place] and we had to switch transport methodologies to [facility]. Departure - Departure Disposition: 02 Transfer Acute Care Hosp Clinical Impression: STEMI (ST elevation myocardial infarction) Condition: Critical Discharge Date/Time: 10/03/19 08:15
[2019-10-03] MEDS ORDERED: HEPARIN 5,000 UNIT/ML VIAL IVP STA (07:28)
[2019-10-03] MEDS ORDERED: HEPARIN 25000UNITS/500ML (D5W) 25,000 UNIT/500 ML BAG IV STA (07:28)
[2019-10-03 07:41] LABS: BASOPHILS % (AUTO) 0.3 %; EOSINOPHILS # (AUTO) 0.2 10^3/uL (0.0-0.7); EOSINOPHILS % (AUTO) 1.8 %; HGB - HEMOGLOBIN 11.7 g/dL (12.0-16.0); LYMPHOCYTES # (AUTO) 2.6 10^3/uL (1.5-3.5); LYMPHOCYTES % (AUTO) 26.4 %; MEAN CORPUSCULAR HEMOGLOBIN 31.5 pg (27.0-31.0); MEAN CORPUSCULAR VOLUME 95.4 fL (81.0-99.0); MEAN PLATELET VOLUME 10.3 fL (7.9-10.8); MONOCYTES # (AUTO) 0.5 10^3/uL (0.0-1.0); MONOCYTES % (AUTO) 4.6 %; NEUTROPHILS # (AUTO) 6.4 10^3/uL (1.5-6.6); NEUTROPHILS % (AUTO) 65.8 %; PLT - PLATELET COUNT 320 10^3/uL (130-450); RED BLOOD COUNT 3.72 10^6/uL (4.20-5.40); RED CELL DISTRIBUTION WIDTH 14.6 % (12.0-15.0); WHITE BLOOD COUNT 9.7 x10^3/uL (4.8-10.8)
[2019-10-03] MEDS ORDERED: ONDANSETRON 4 MG/2 ML VIAL IVP STA (07:44)
[2019-10-03 07:48] LABS: INR 1.1 (0.8-1.2); PT - PROTHROMBIN TIME 12.5 secs (9.9-12.6)
[2019-10-03 07:57] LABS: ALBUMIN/GLOBULIN RATIO 2.4 (1.0-2.2); BILIRUBIN,TOTAL 1.7 mg/dL (0.2-1.0); CREATININE 0.6 mg/dL (0.4-1.0); TOTAL PROTEIN 5.7 g/dL (6.7-8.2)
[2019-10-03 08:13] VITALS: BP 101/57
--- NOTE | 2019-10-03 08:45 | XRAY Report ---
PROCEDURE: Chest 1 View X-Ray INDICATIONS: CP TECHNIQUE: One view of the chest was acquired. COMPARISON: 08/08/2014 FINDINGS: Surgical changes and devices: None. Lungs and pleura: No pleural effusions or pneumothorax. Lungs are clear. Mediastinum: Mediastinal contours appear normal. Heart size is normal. Bones and chest wall: No suspicious bony lesions. Overlying soft tissues appear unremarkable. IMPRESSION: No acute cardiopulmonary pathology. Reviewed by: Byron Richards MD on 10/03/2019 8:44 AM PDT Approved by: Byron Richards MD on 10/03/2019 8:44 AM PDT Station ID: [id number]
== END 2019-10-03 08:15 | disposition short-term general hospital (02) ==
LOC: EDUNIT# → ED 07:19
DX: I21.3 ST elevation (STEMI) myocardial infarction of unspecified site (principal); I48.91 Unspecified atrial fibrillation; L27.1 Localized skin eruption due to drugs and medicaments taken internally; T36.8X5A Adverse effect of other systemic antibiotics, initial encounter; I10 Essential (primary) hypertension; E11.9 Type 2 diabetes mellitus without complications; Z79.84 Long term (current) use of oral hypoglycemic drugs
CPT/HCPCS: 36415; 71045; 80053; 83690; 84484; 85025; 85610; 93005; 96374; 96375; 99281

== ENCOUNTER 2019-11-13 12:38 | Outpatient (CLI) | payer MEDICARE, OTHER | END 2019-11-13 12:39 | disposition home or self-care (01) | LOC: COV 12:38 | PROVIDERS: ATTEND Physician Assistant | DX: Z01.812 Encounter for preprocedural laboratory examination (principal); Z11.59 Encounter for screening for other viral diseases ==

== ENCOUNTER 2020-11-24 13:43 | Emergency (ER) | payer MEDICARE, OTHER ==
[2020-11-24] MEDS ORDERED: HYDROcod/ACETAM 5/325 MG TABLET PO STA (15:16)
--- NOTE | 2020-11-24 15:18 | ED Physician Documentation ---
PD HPI LOWER EXT INJURY - Stated complaint Stated Complaint: R KNEE PX - Chief complaint Chief Complaint: Ext Problem - History obtained from History obtained from: Patient, Family - Additional information Additional information: This is a malina 80-year-old woman with A. fib on Eliquis who had some mild posterior knee pain last night but suddenly developed more significant right knee pain while walking just prior to arrival. There was no specific injury. No changes in her activities recently. Pain is at this point severe. She cannot really walk or bear weight. 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, Hysterectomy - Present Medications Home Medications: Ambulatory Orders Medication Instructions Recorded Confirmed Metformin HCl [Glumetza] 1,000 mg PO BID 07/03/13 10/03/19 lisinopriL [Zestril] 40 mg PO DAILY 07/03/13 10/03/19 Naproxen 375 mg PO BID #20 tablet 02/24/18 10/03/19 Amlodipine Besylate [Norvasc] 10 mg PO DAILY 08/26/20 08/26/20 Aspirin [Aspirin EC] 81 mg PO DAILY 08/26/20 08/26/20 C,E,Zinc,Copper 11/Fwmzw1d/Lut 1 each PO DAILY 08/26/20 08/26/20 [Ocuvite Adult 50 Plus Softgel] Carvedilol [Coreg] 12.5 mg PO DAILY 08/26/20 08/26/20 Cholecalciferol (Vitamin D3) 25 mcg PO DAILY 08/26/20 08/26/20 [Vitamin D3] Famotidine [Acid-Pep] 20 mg PO DAILY 08/26/20 08/26/20 Lisinopril [Zestril] 40 mg PO DAILY 08/26/20 08/26/20 Rosuvastatin Calcium [Crestor] 10 mg PO QPM 08/26/20 08/26/20 Vitamin B Complex 1 each PO DAILY 08/26/20 08/26/20 glipiZIDE [Glipizide] 2.5 mg PO DAILY 08/26/20 08/26/20 HYDROcod/ACETAM 5/325 [[place] 5/325] 1 - 2 tab PO Q6H PRN #15 tablet 11/24/20 - Allergies Allergies/Adverse Reactions: Allergies Allergy/AdvReac Type Severity Reaction Status Date / Time acetaminophen [From Percocet] Allergy Unknown Verified 11/24/20 14:01 cephalexin [From Keflex] Allergy Unknown Verified 11/24/20 14:01 nitrofurantoin Allergy Unknown Verified 11/24/20 14:01 oxycodone [From Percocet] Allergy Unknown Verified 11/24/20 14:01 sulfamethoxazole Allergy Unknown Verified 11/24/20 14:01 [From Bactrim] trimethoprim [From Bactrim] Allergy Unknown Verified 11/24/20 14:01 - Social History Does the pt smoke?: No Smoking Status: Never smoker Does the pt drink ETOH?: No Does the pt have substance abuse?: No - Immunizations Immunizations are current?: Yes - POLST Patient has POLST: No PD ED PE NORMAL - Vitals Vital signs reviewed: Yes - General General: Alert and oriented X 3, No acute distress - Extremities Extremities: Other (R knee: Mild diffuse TTp about the joing with moderate effusion. Pain with flexion >30 degrees. No warmth/redness.) - Neuro Neuro: Alert and oriented X 3, Normal speech Results - Vitals Vitals: Vital Signs - 24 hr 11/24/20 11/24/20 13:56 16:13 Temperature 36.7 C 36.5 C Heart Rate 72 69 Respiratory 14 16 Rate Blood Pressure 136/56 H 134/55 H O2 Saturation 98 98 Oxygen O2 Source [With Activity] Room air O2 Source Room air PD MEDICAL DECISION MAKING - ED course ED course: I suspect she has a very small hemorrhagic effusion given that she is on Eliquis. The symptoms really are not consistent with infection, neither is the exam. We discussed a therapeutic arthrocentesis but given the finding of only small effusion on x-ray probably not worthwhile. Departure - Departure Disposition: 01 Home, Self Care Clinical Impression: Knee pain, acute Qualifiers: Laterality: right Qualified Code(s): M25.561 - Pain in right knee Condition: Good Record reviewed to determine appropriate education?: Yes Instructions: ED Knee Pain [facility] Follow-Up: Balta Rivas MD [Provider Admit Priv/Credential] - Prescriptions: HYDROcod/ACETAM 5/325 [[place] 5/325] 1 - 2 tab PO Q6H PRN #15 tablet PRN Reason: Pain Comments: X-ray today shows only a very small amount of fluid in the joints and mild arthritic changes. I would recommend you follow-up with the orthopedic surgeon, calling for an appointment. Returning if worse. I am prescribing a short course of narcotic pain medication for you. These are potentially dangerous and addictive medications that should be used carefully. These medications may constipate you. Take an quuk-yfu-bkyiotk stool softener (docusate) twice daily with plenty of water while taking these medications. If you go 24 hours without a bowel movement, take ppyb-hji-fcuenzp miralax, per package instructions. Do not drink or drive while taking these medications. If you received narcotic or sedating medications while in the emergency department, do not drive for 24 hours. Store this medication in a safe, secure place and out of reach of children. It is a violation of federal law to give or sell this medication to another person or to use in a manner other than prescribed. The ED will not refill narcotic prescriptions, including prescriptions lost or stolen. To dispose of unwanted medications: 1. [facility] at [address] in [place] has a medication drop box. They accept prescription medications (in pill form) Saturday through Saturday 9:00 a.m. to 5:00 p.m. 2. The [facility] [employer] accepts prescription medications (in pill form only) for disposal year round. Call for more information. 3. Contact the [facility] for the next [facility] sponsored prescription drug collection event. , [phone], or [phone]; Note that many narcotic pain relievers also contain Tylenol/acetaminophen. Please ensure that your total dose of acetaminophen from all sources does not exceed 3 g (3000 mg) per day. Discharge Date/Time: 11/24/20 17:10
--- NOTE | 2020-11-24 15:56 | XRAY Report ---
PROCEDURE: Knee 3 View RT INDICATIONS: knee pain TECHNIQUE: 3 views of the right knee(s) were acquired. COMPARISON: None. FINDINGS: Bones: No fractures or dislocations. No suspicious bony lesions. Moderate medial and patellofemora l compartment narrowing. Small paratracheal or osteophytes are present. No erosions. Soft tissues: Mild joint effusion. No suspicious soft tissue calcifications. IMPRESSION: 1. Arthritic changes with medial patellofemoral compartment as above. Reviewed by: Radha Hudson MD on 11/24/2020 3:55 PM PDT Approved by: Radha Hudson MD on 11/24/2020 3:55 PM PDT Station ID: [id number]
[2020-11-24 16:13] VITALS: BP 134/55
== END 2020-11-24 17:10 | disposition home or self-care (01) ==
LOC: ED 13:43
DX: M25.561 Pain in right knee (principal); M17.11 Unilateral primary osteoarthritis, right knee; I48.91 Unspecified atrial fibrillation; I10 Essential (primary) hypertension; E11.9 Type 2 diabetes mellitus without complications; M41.9 Scoliosis, unspecified; Z79.84 Long term (current) use of oral hypoglycemic drugs; Z79.01 Long term (current) use of anticoagulants; Z79.82 Long term (current) use of aspirin; Z79.899 Other long term (current) drug therapy
CPT/HCPCS: 73562; 99283; A9270

== ENCOUNTER 2020-12-01 13:30 | Outpatient (CLI) | payer MEDICARE, OTHER ==
--- NOTE | 2020-12-02 09:22 | XRAY Report ---
PROCEDURE: Knee 4 View RT INDICATIONS: R KNEE PX TECHNIQUE: 4 views of the right knee(s) were acquired. COMPARISON: None. FINDINGS: Bones: No fractures or dislocations. Mild to moderate tricompartmental osteoarthritis is seen in rig ht knee more prominent in medial femoral tibial compartment. No suspicious bony lesions. Soft tissues: Moderate suprapatellar joint effusion is seen. No suspicious soft tissue calcifications . IMPRESSION: Mild to moderate tricompartmental osteoarthritis more prominent in medial femoral tibial compartment. Moderate suprapatellar joint effusion. Reviewed by: Byron Richards MD on 12/02/2020 9:21 AM PDT Approved by: Byron Richards MD on 12/02/2020 9:21 AM PDT Station ID: [id number]
== END 2020-12-01 23:59 | disposition home or self-care (01) ==
LOC: DI.N 13:30
PROVIDERS: ATTEND Physician Assistant
DX: M17.11 Unilateral primary osteoarthritis, right knee (principal); M25.461 Effusion, right knee

== ENCOUNTER 2021-05-15 07:39 | Outpatient (CLI) | payer MEDICARE, OTHER ==
--- NOTE | 2021-05-15 13:33 | XRAY Report ---
PROCEDURE: Hand 3 View BILAT INDICATIONS: BILAT HAND PAIN TECHNIQUE: 3 views of the hand(s) acquired. COMPARISON: None FINDINGS: Bones: No fractures or dislocations. Osteoarthritic changes throughout bilateral hand and wrist eduardo nts are seen worse on the right side. Finding is most pronounced in bilateral first interphalangeal j oints, right first CMC joint, bilateral second and third DIP joints, and right fourth PIP and DIP eduardo nts. Radiolucencies are noted involving right third metacarpal head. There are suggestion of erosive changes involving bilateral second and third DIP joints, left fourth TMT joint, and right fourth PIP and DIP joints. No suspicious bony lesions. Soft tissues: No suspicious soft tissue calcifications. 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 There are features involving js ateral second through fourth. 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 No fracture o r dislocation. Reviewed by: Byron Richards MD on 05/15/2021 1:31 PM PST Approved by: Byron Richards MD on 05/15/2021 1:31 PM PST Station ID: [id number]
== END 2021-05-15 07:40 | disposition home or self-care (01) ==
LOC: DI.WOS 07:39
PROVIDERS: ATTEND Physician Assistant
DX: M19.042 Primary osteoarthritis, left hand (principal); M19.041 Primary osteoarthritis, right hand

== ENCOUNTER 2021-12-15 10:49 | Outpatient (CLI) | payer MEDICARE, OTHER ==
--- NOTE | 2021-12-19 10:24 | Mammography Report ---
BILATERAL DIGITAL DIAGNOSTIC MAMMOGRAM 3D/2D: 12/15/2021 CLINICAL: Focal left breast pain. Rt side regular screen. Comparison is made to exams dated: 05/05/2015 mammogram - [facility] and 11/19/2011 mammogram - [facility]. There are scattered areas of fibroglandular density in both breasts (category b / 25%-50% glandular t issue). No significant masses, calcifications, or other findings are seen in either breast. There has been no significant interval change. IMPRESSION: NEGATIVE There is no mammographic evidence of malignancy. A 1 year screening mammogram is recommended. Based on the Tyrer Cuzick model (a risk assessment model) the patients lifetime risk is 2.7% and her 10 year risk is 0.0%. According to the ACR, ACS, and NCCN guidelines, an annual breast MRI exam eh g with mammogram is recommended if the patients lifetime risk is 20% or greater. This exam was interpreted at Station ID: [id number]. NOTE: For mammograms, a report in lay terms will be sent to the patient. Approximately 15% of breast malignancies will not be visualized mammographically. In the management of a palpable breast mass, a negative mammogram must not discourage biopsy of a clinically suspicious lesion. Electronically Signed By: Moe Saha M.D., [email or web address]/[email or web address]:12/15/2021 16:00:32 ACR BI-RADS Category 1: Negative 3341F PARENCHYMAL PATTERN: (A) - The breast(s) demonstrate(s) scattered fibroglandular densities. BI-RADS CATEGORY: (1) - 1 RECOMMENDATION: (ANNUAL) - Recommend routine annual screening mammography. [id number] 1 year screening LATERALITY: (B)
== END 2021-12-15 10:50 | disposition home or self-care (01) ==
LOC: DI 10:49
PROVIDERS: ATTEND Physician Assistant
DX: N64.4 Mastodynia (principal)